=== PATIENT | male | born 1995 | race Caucasian/White ===

== ENCOUNTER 2021-10-01 20:59 | Emergency (ER) | payer OTHER ==
[~2021-10-01] VITALS: Ht 180.3 cm; Wt 95.5 kg
[2021-10-01 21:28] VITALS: BP 130/80
[2021-10-01] MEDS: LIDOCAINE 1% 10 ML VIAL ID ONE (21:52)
[2021-10-01] MEDS: SULFAMETHOX/TRIMETH DS 800-160 MG/TABLET PO ONE (21:52)
[2021-10-01] MEDS ORDERED: SULF-261 PO (22:17)
== END 2021-10-01 23:04 | disposition home or self-care (01) ==
LOC: EMS 21:01
DX: L03.031 Cellulitis of right toe (principal)
CPT/HCPCS: 99284; 11730; J3490